=== PATIENT | female | born 1970 | race Caucasian/White ===

== ENCOUNTER 2018-03-19 10:22 | Outpatient (CLI) | payer OTHER | END 2018-03-19 10:26 | disposition home or self-care (01) | LOC: MAMO-SONO 10:22 | DX: N60.11 Diffuse cystic mastopathy of right breast (principal); N60.12 Diffuse cystic mastopathy of left breast ==

== ENCOUNTER 2019-05-01 10:45 | Inpatient (IN) | payer OTHER ==
[~2019-05-01] VITALS: Ht 162.6 cm; Wt 97.5 kg
[2019-05-08] MEDS ORDERED: OXYC1TAB9 PO (07:23)
== END 2019-05-08 10:01 | disposition home or self-care (01) | DRG 743 ==
LOC: O/R 10:45 → OB/GYN 05-06 07:40 → RECOVERY 05-06 10:45 → OB/GYN 05-06 14:06
PROVIDERS: ADMIT Obstetrics & Gynecology Gynecology
PROC: 0UT70ZZ Resection of Bilateral Fallopian Tubes, Open Approach (ICD-10-PCS; 2019-05-06)
PROC: 0UT90ZZ Resection of Uterus, Open Approach (ICD-10-PCS; principal; 2019-05-06 11:45)
DX: D25.2 Subserosal leiomyoma of uterus (principal); N92.0 Excessive and frequent menstruation with regular cycle; N72 Inflammatory disease of cervix uteri